=== PATIENT | female | born 1955 | race African-American/Black ===

== ENCOUNTER 2023-08-04 11:43 | Emergency (ER) | payer MEDICARE, OTHER ==
[~2023-08-04] VITALS: Ht 167.6 cm; Wt 75.0 kg
[2023-08-04 11:50] VITALS: BP 125/76; PULSE 71; RESP 16; TEMP 98.3; O2SAT 96
[2023-08-04 12:46] LABS: CARBON DIOXIDE 29 mEq/L (21-32); CHLORIDE 103 mEq/L (98-107); POTASSIUM 3.4 mEq/L (3.5-5.1); SODIUM 142 mEq/L (136-145)
[2023-08-04 12:47] LABS: CALCIUM 10.3 mg/dL (8.7-10.4)
[2023-08-04 12:52] LABS: CREATININE 0.9 mg/dL (0.6-1.0); GLUCOSE 94 mg/dL (70-105); UREA NITROGEN BLOOD 16 mg/dL (9-23)
[2023-08-04 12:53] LABS: ALANINE AMINOTRANSFERASE 21 IU/L (10-49); ALBUMIN 4.9 g/dL (3.2-4.8); ASPARTATE AMINOTRANSFERASE 23 IU/L (<34)
[2023-08-04 12:54] LABS: BILIRUBIN TOTAL 0.6 mg/dL (0.1-1.0)
[2023-08-04 13:00] LABS: BASOPHILS % 0.4 % (0.0-2.0); EOSINOPHILS % 0.2 % (0.0-5.0); HEMATOCRIT. 43.1 % (36.0-48.0); HEMOGLOBIN. 14.7 g/dL (12.0-16.0); LYMPHOCYTES % 17.3 % (20.0-50.0); MEAN CORPUSCULAR HEMOGLOBIN 31.7 pg (28.0-32.0); MEAN CORPUSCULAR HGB CONC 34.1 g/dL (31.0-37.0); MEAN CORPUSCULAR VOLUME 92.9 fL (81.0-99.0); MEAN PLATELET VOLUME 8.9 fl (7.4-10.4); MONOCYTES % 5.3 % (2.0-8.0); NEUTROPHILS % 76.8 % (40.0-76.0); PLATELET 302 x1000/uL (130-400); RED BLOOD CELL COUNT 4.64 mill/uL (4.2-5.4); RED CELL DISTRIBUTION WIDTH 13.4 % (11.6-14.6); WHITE BLOOD COUNT 7.8 x1000/uL (4.5-11.0)
== END 2023-08-04 15:27 | disposition home or self-care (01) ==
LOC: ER 11:43
DX: K80.20 Calculus of gallbladder without cholecystitis without obstruction (principal); I10 Essential (primary) hypertension; Z88.3 Allergy status to other anti-infective agents
CPT/HCPCS: 36415; 74176; 80053; 85025; 99284